=== PATIENT | male | born 2005 | race Hispanic/Latino ===

== ENCOUNTER 2024-11-10 11:02 | Emergency (ER) | payer SELFPAY ==
[2024-11-10] MEDS ORDERED: Lidocaine/Transparent Dressing 1 EACH KIT ONE (11:20)
[2024-11-10] MEDS ORDERED: HYDROcodone/Acetaminophen 5/325 mg Tablet ONE (11:27)
[2024-11-10] MEDS ORDERED: Ibuprofen 200 MG TAB ONE (11:27)
[2024-11-10] MEDS ORDERED: Lidocaine 1% w/Epinephrine 1:100K 20 ML VIAL ONE (11:53)
[2024-11-10] MEDS ORDERED: Bacitracin 1 PK ONE (12:13)
[2024-11-10] MEDS ORDERED: Boostrix 0.5 ML (Tdap) VIAL (>/=7 yrs of age) ONE (13:01)
== END 2024-11-10 13:28 | disposition home or self-care (01) ==
LOC: ERS 11:02
DX: S71.111A Laceration without foreign body, right thigh, initial encounter (principal); W22.8XXA Striking against or struck by other objects, initial encounter; Y99.0 Civilian activity done for income or pay
CPT/HCPCS: 90471; 90715